=== PATIENT | male | born 1970 | race Caucasian/White ===

== ENCOUNTER 2016-09-15 13:31 | Observation (INO) ==
[2016-09-15 14:42] LABS: Basophils % 0.2 % (0.0-0.8); Eosinophils % 0.1 % (0.00-10.9); Hemoglobin 13.6 GM/DL (14.0-18.0); Immature Granulocytes % 0.5 %; Lymphocytes # 1.3 10*3/uL (1.4-4.0); Lymphocytes % 6.5 % (21.2-54.2); Mean Corpuscular HGB Conc 32.4 GM/DL (32-36); Mean Corpuscular Hemoglobin 26 PG (27-34); Mean Platelet Volume 10.8 FL (9.6-12.0); Monocytes % 4.9 % (1.7-12.7); Neutrophils # 17.1 10*3/uL (1.4-7.4); Neutrophils % 87.8 % (38.7-73.9); Platelet Count 247 10*3/uL (130-400); Red Blood Count 5.25 10*6/uL (3.8-5.5); Red Cell Distribution Width 13.8 % (9.3-17.3); White Blood Count 19.4 10*3/uL (4.5-13.71)
[2016-09-15 14:46] LABS: Apearance,Urine CLEAR (Clear); Bilirubin,Urine Negative (Negative); Blood, Urine Negative (Negative); Glucose,Urine (UA) 50 mg/dL (Negative); Ketones,Urine 20 mg/dL (Negative); Mucus,Urine Occasional /LPF (Occasional); Nitrite,Urine Negative (Negative); Protein,Urine 30 MG/DL; Squamous Epithelial Cell,Urine Occasional /HPF (0-10); Urine Color Yellow (Yellow); Urine Specific Gravity 1.028 (1.001-1.035); Urine Urobilinogen < 2.0 EU/DL (0.2-1.0); WBC,Urine 1 /HPF (0-6)
--- NOTE | 2016-09-15 15:03 | XRay Report ---
XR abdomen 2V Indication: Right-sided abdominal pain. Abdomen 3 views: No small bowel dilatation. Increased stool and gas projects over the colon, without dilatation. No evidence of free air. No abnormal calcifications or masses. Impression: Mild constipation without obstruction. PROCEDURE INTERPRETED AT [facility] DEPARTMENT OF RADIOLOGY Final Report Signed by: Michael Woody M.D.
[2016-09-15 15:08] LABS: Calcium 9.7 MG/DL (8.5-10.1); Magnesium 2.3 MG/DL (1.8-2.4); Potassium 4.3 MMOL/L (3.5-5.1)
--- NOTE | 2016-09-15 15:31 | CT Report ---
CT abdomen pelvis w con Indication: Right lower quadrant pain. Leukocytosis. CT ABDOMEN AND PELVIS WITH CONTRAST DLP: 1367 mGy*cm Comparison: None Technique: Axial CT images of the abdomen and pelvis were obtained with IV contrast; Omnipaque 350, 100 cc. Oral contrast was not administered. Abdomen: Liver is diffusely hypodense. No focal lesion shown. Gallbladder, spleen, pancreas, adrenal glands, left kidney, inferior mediastinal contents and vascular structures are grossly unremarkable. There is a 20 mm hypodensity arising the right kidney, likely a cyst. Minimal atelectasis involves the lung bases which are otherwise clear. No destructive bone lesions. No bowel obstruction. Pelvis: Minimal amount of inflammation involves the tip of the appendix which is 11 mm diameter. Urinary bladder and rectosigmoid colon are unremarkable. Prostate is normal in size. No free fluid, free air or lymphadenopathy. Impression: 1. Early acute appendicitis. 2. Right renal cyst. PROCEDURE INTERPRETED AT [facility] DEPARTMENT OF RADIOLOGY Final Report Signed by: Michael Woody M.D.
[2016-09-15] MEDS ORDERED: MORPHINE 2 MG/1 ML SYRINGE IV STA (15:36)
[2016-09-15] MEDS ORDERED: ONDANSETRON 4 MG/2 ML VIAL IV STA (15:36)
[2016-09-15] MEDS ORDERED: ONDANSETRON 4 MG/2 ML VIAL ONE ×2 (15:38→18:42)
[2016-09-15] MEDS ORDERED: MORPHINE 2 MG/1 ML SYRINGE ONE (15:38)
--- NOTE | 2016-09-15 15:47 | Emergency Department Note ---
Sina Frias Brooke, am scribing for, and in the presence of, Dickson Pineda M.D. 14:53. Miriam Frias Howard T, M.D., personally performed the services described in this documentation, ascribed by Alley Andino in my presence, and it is both accurate and complete [id number] . Arrival - Arrival Chief Complaint: Abdominal / Flank Pain Stated Complaint: right side abd pain ED Nursing Triage Note: Onset of RLQ ABD pain this morning. Last BM last night was normal. +Nausea last night. Mode of Arrival: Ambulatory Limitations: No Limitations Source: Patient, RN Notes Reviewed Time Seen by Provider: 09/15/16 14:16 - History of Present Illness HPI Narrative: Patient is a 45 year old male who presents to the ED with c/o RLQ abdominal pain. He says the pain started around 0500 this morning. After going to work he says the pain worsened. Patient says he has never experienced this pain in the past. He has never had any abdominal surgeries. Patient says he did vomit once around 2300, last night, but has no other symptoms. He has not had any food or drink today. Patient has PMHx of HTN, dyslipidemia, and NIDDM. Onset (ago): hour(s) (8) Allergies/Adverse Reactions: Allergies Allergy/AdvReac Type Severity Reaction Status Date / Time No Known Allergies Allergy Unverified 09/15/16 13:54 Review of System - Review of System 12 point system: reviewed and no additional remarkable complaints except as stated - Review of System Constitutional: Absent: fever Respiratory: Absent: respiratory distress Gastrointestinal: Present: abdominal pain (RLQ), vomiting (last night around 2300) Skin: Absent: rash Medical,Surgical,& Family Hx - Medical History Cardio: History of: Hypertension Endocrine: History of: Diabetes Mellitus (NIDDM), Dyslipidemia - Social History Smoking Status: Unknown if ever smoked Frequency of Alcohol Use: Unknown Type of Drug Use: Unknown Exam Vital Signs: Vital Signs Temperature 98.2 F 09/15/16 13:51 Pulse Rate 106 H 09/15/16 15:15 Respiratory Rate 16 09/15/16 13:51 Blood Pressure 162/101 09/15/16 15:15 O2 Sat by Pulse Oximetry 98 09/15/16 15:15 - General General appearance: alert, in no apparent distress - Head Head exam: Present: atraumatic, normocephalic - Eye Eye exam: Present: normal appearance, PERRL, EOMI - ENT ENT exam: Present: normal exam - Neck Neck exam: Present: normal inspection - Chest Chest inspection: Present: normal inspection, symmetric chest wall rise - Respiratory Respiratory exam: Present: normal lung sounds bilaterally - Cardiovascular Cardiovascular exam: Present: regular rate, normal rhythm, normal heart sounds - Abdominal Exam Abdominal exam: Present: soft, tenderness (RLQ). Absent: distention - Extremities Exam Extremities exam: Present: normal inspection - Back Exam Back exam: Present: normal inspection - Neurological Exam Neurological exam: Present: alert, oriented X3 - Psychiatric Psychiatric exam: Present: normal affect, normal mood - Skin Skin exam: Present: warm, dry, intact, normal color Course Course Narrative: Medical decision making: History and exam is consistent with appendicitis, contacted Dr. Vaz general surgeon on-call for further evaluation and treatment. Results - Labs CBC & BMP: 09/15/16 14:24 09/15/16 14:24 Lab Results: I have reviewed the patients labs Labs: Laboratory Tests 09/15/16 09/15/16 14:24 14:27 WBC 19.4 H Hgb 13.6 L MCV 80.0 L MCH 26 L Neut % (Auto) 87.8 H Lymph % (Auto) 6.5 L Neut # (Auto) 17.1 H Lymph # (Auto) 1.3 L [place] # (Auto) 1.0 H Urine Urobilinogen < 2.0 H Laboratory Tests 09/15/16 14:24 Anion Gap 16.3 H BUN 22 H Glucose 159 H Laboratory Tests 09/15/16 14:24 Anion Gap 16.3 H BUN 22 H Glucose 159 H Disposition Clinical Impression: Acute appendicitis Case discussed with: patient Disposition: Disch/Xfer-[facility]pshort Term Hos Condition: Stable Time of Disposition: 15:47
[2016-09-15] MEDS ORDERED: PIPERACILLIN/TAZOBACTAM 3,375 MG in SODIUM CHLORIDE 0.9% 100 ML IV STA (16:04)
[2016-09-15] MEDS ORDERED: PIPERACILLIN/TAZOBACTAM 3,375 MG VIAL IV ONE (16:06)
[2016-09-15] MEDS ORDERED: KETOROLAC 30 MG/1 ML VIAL IV STA (16:11)
[2016-09-15] MEDS ORDERED: HYDROmorphone 2 MG/1 ML VIAL IV STA (16:11)
[2016-09-15] MEDS ORDERED: KETOROLAC 30 MG/1 ML VIAL ONE (16:14)
[2016-09-15] MEDS ORDERED: HYDROmorphone 2 MG/1 ML VIAL ONE (16:14)
--- NOTE | 2016-09-15 16:14 | General Surg History&Physical ---
Assessment and Plan (1) Acute appendicitis Status: Acute Assessment and plan: This patient has acute early appendicitis on CT scan. I discussed the options for management with him including medical management with antibiotics and laparoscopic appendectomy. I have discussed the success rate in the treatment regimen for antibiotics and the patient prefers to proceed with a laparoscopic appendectomy. I discussed the risks, benefits, and alternatives of the operation with the patient, and the expected outcomes have been reviewed. The patient elected to proceed with laparoscopic appendectomy and this will be done tonight. He will be given Zosyn and Toradol and Dilaudid in the ER in preparation for surgery. Current Visit: Yes History of Present Illness Chief complaint: abdominal pain History of present illness: Mr. Mendoza is a 45 year old male with a past medical history of hypertension, gfz-mbxyefr-aerstmutv diabetes mellitus, and hypertriglyceridemia as well as low back pain who presents to the hospital with new onset of right lower quadrant abdominal pain that started today. He had some nausea and vomiting last night and again today but he has been having normal bowel movements. No blood in his urine. He has never had any abdominal surgery. Lab work in the ER revealed white blood cell count of 19,[address] scan of abdomen and pelvis demonstrated early appendicitis and a right renal cyst. Allergies Allergy/AdvReac Type Severity Reaction Status Date / Time No Known Allergies Allergy Unverified 09/15/16 13:54 Medical,Surgical,& Family Hx - Medical History Cardio: History of: Hypertension Endocrine: History of: Diabetes Mellitus (NIDDM), Dyslipidemia - Social History Smoking Status: Unknown if ever smoked Frequency of Alcohol Use: Unknown Type of Drug Use: Unknown Exam - Constitutional Vitals: Period Temp Pulse Resp BP Sys/[place] Pulse Ox Last 24 Hr 98.2 F 86-106 16 156-165/93-101 97-98 General appearance: no acute distress, over weight - Head Head exam: Present: normal inspection - Eye Eye exam: Present: EOMI Pupils: Present: RAVEN - ENT ENT exam: Present: normal exam Mouth exam: Present: normal external inspection, normal voice - Neck Neck exam: Present: normal inspection, trachea midline - Respiratory Respiratory exam: Present: clear to auscultation bilaterally. Absent: accessory muscle use, chest wall tenderness - Cardiovascular Cardiovascular exam: Present: RRR. Absent: systolic murmur, tachycardia - GI/Abdominal GI/Abdominal exam: Present: normal bowel sounds, guarding, tenderness, rebound, soft. Absent: ascites, distended, hernia - Extremities Exam Extremities exam: Present: normal inspection, normal capillary refill - Back Exam Back exam: Present: normal inspection - Neurological Exam Neurological exam: Present: alert, oriented X3 Speech: Present: normal - Skin Skin exam: Present: normal color, warm - Constitutional Constitutional: Present: as per HPI - EENT Nose, mouth and throat: Present: as per HPI - Cardiovascular Cardiovascular: Present: as per HPI - Respiratory Respiratory: Present: as per HPI - Gastrointestinal Gastrointestinal: Present: as per HPI - Genitourinary Genitourinary: Present: as per HPI - Musculoskeletal Musculoskeletal: Present: as per HPI - Neurological Neurological: Present: as per HPI - Endocrine Endocrine: Present: as per HPI Hematologic/Lymphatic: Present: as per HPI Results - Labs CBC & BMP: 09/15/16 14:24 09/15/16 14:24 - Diagnostic Findings Procedure: CT Abdomen and Pelvis: image reviewed by me, report reviewed by me
[2016-09-15] MEDS ORDERED: BUPIVACAINE MPF 0.25% /EPI 30 ML VIAL ONE (16:53)
[2016-09-15] MEDS ORDERED: LIDOCAINE 1%/EPI INJ 20 ML VIAL ONE (16:53)
[2016-09-15] MEDS ORDERED: TISSUE ADHESIVE 1 EACH APPLICATOR TOP ONE (18:22)
--- NOTE | 2016-09-15 18:31 | Operative Note ---
Date of procedure: 09/15/16 Pre-op diagnosis: acute appendicitis Post-op diagnosis: same Procedure: Preoperative diagnosis Acute appendicitis Post operative diagnosis Same Procedures performed Laparoscopic appendectomy Findings Acute suppurative nonperforated appendicitis Complications None apparent Specimens Appendix Blood loss [address] proven appendicitis Description of procedure Patient was taken to the operating room and transferred to the operating table in the supine position. Pressure points were padded and SCDs placed to lower extremities. General endotracheal anesthesia was administered. The abdomen was prepped chlorhexidine and draped sterilely. Preoperative antibiotics were administered, and a timeout was performed. The abdomen was entered in a supraumbilical paramedian location on the right side. Local anesthetic was administered and a 12 mm skin incision was made with a 15 blade scalpel. Penetrating towel clips are used to grasp the abdominal wall skin and a Veress needle was used to enter the peritoneal cavity confirmed by double click technique. Aspiration was negative. Saline drop test confirmed intraperitoneal location. The abdomen was insufflated to 15 mmHg with an initial insufflation pressure of 5 mm Hg. The Veress needle was then removed and a 12 mm trocar was placed blindly. Laparoscope was inserted. Diagnostic laparoscopy was performed. There was evidence of acute appendicitis with some gangrene of the distal portion of the appendix and acute separation but no perforation was seen. The patient was placed in Trendelenburg left side rolled up position. Under direct visualization, and after local anesthetic was administered, an additional 5 mm trochars placed in the suprapubic area and the left lower quadrant. The appendix was grasped and the mesentery of the appendix was opened to create a window in the appendiceal mesentery. A DAVID stapler used to transect the base the appendix and a separate load of the DAVID stapler using a vascular load was used to transect the appendix mesentery. There is no bleeding from the staple lines. There was no purulence to suction out of the pelvis or the right lower quadrant of paracolic gutter. The liver appeared normal as did the gallbladder. The appendix was placed in a retrieval bag and removed through the 12 mm trocar site. The CO2 was released from the abdomen and trochars were removed. The skin incisions were closed with 4-0 Monocryl and sterile skin glue. The patient was awakened from anesthesia and transferred to recovery. Postoperative plan Admit for observation overnight Discharge home in the morning Anesthesia: GETA, local Surgeon / Physician: Brett Vaz Estimated blood loss: minimal Specimens: other (appendix) Condition: stable Disposition: PACU Results - Labs CBC & BMP: 09/15/16 14:24 09/15/16 14:24 Discharge Plan - Discharge Data Disposition: Disch To Home/Self Care Condition at Discharge: Stable Discharge Diet: advance to your usual diet Activity: no lifting Hygiene: may shower Weight Bearing at Discharge: full weight bearing Driving: not until seen by doctor Contact your physician if you experience:: fever over 101, Difficulty voiding, Redness or swelling, Nausea/Vomiting, Shortness of breath, Bleeding, pain uncontrolled by pain medications Wound / Dressing Care Instructions: It is okay to shower. Do not scrub incisions aggressively. Do not submerge incisions under water. - Discharge Medications Continue Methocarbamol 500 mg PO QID Simvastatin 40 mg PO DAILY Ibuprofen Tab [Motrin Tab] 800 mg PO TID PRN PRN Reason: Pain Dapagliflozin Propanediol [Farxiga] 5 mg PO QAM Atenolol 50 mg PO DAILY Lisinopril/Hydrochlorothiazide [Lisinopril-Hctz 20-25 mg Tab] 1 tablet PO BID Hydrocodone/Acetaminophen [Hydrocodon-Acetaminoph 7.5-325] 1 tablet PO Q4H PRN #45 tablet PRN Reason: Pain - Follow Up or Referral Follow Up: Brett Vaz MD [Physician] - 2 Weeks - Forms/Instructions
[2016-09-15] MEDS ORDERED: SUFentanil 50 MCG/ML AMP ONE (18:41)
[2016-09-15] MEDS ORDERED: PROPOFOL 200 MG/20 ML VIAL IV ONE (18:42)
[2016-09-15] MEDS ORDERED: GLYCOPYRROLATE 0.4 MG/2 ML VIAL ONE ×2 (18:43)
[2016-09-15] MEDS ORDERED: NEOSTIGMINE 10 MG/10 ML VIAL ONE (18:43)
[2016-09-15] MEDS ORDERED: LACTATED RINGERS 1,000 ML IV ONE (18:43)
[2016-09-15] MEDS ORDERED: ROCURONIUM 100 MG/10 ML VIAL IV ONE (18:43)
[2016-09-15] MEDS ORDERED: ACETAMINOPHEN 1,000 MG/100 ML VIAL IV ONE (18:43)
[2016-09-15] MEDS ORDERED: SEVOFLURANE 1 UNIT/15 MINUTE INH ONE (18:44)
--- NOTE | 2016-09-15 18:50 | Anesthesia ---
Anesthesia Post OP - Post Ansesthetic Evaluation Patient seen in post op: Yes Resp: within normal limits CV: within normal limits Mental: within normal limits Temp: within normal limits Yavn-[id number]-Xbiyfapil: within normal limits Nausea and Vomiting: within normal limits Pain: within normal limits
[2016-09-15] MEDS ORDERED: HYDROmorphone 2 MG/1 ML VIAL IV PRN (19:59)
[2016-09-15] MEDS ORDERED: PROMETHAZINE 25 MG/1 ML VIAL IM PRN (19:59)
[2016-09-15] MEDS ORDERED: ONDANSETRON 4 MG/2 ML VIAL IV PRN (19:59)
[2016-09-15] MEDS ORDERED: GLUCAGON 1 MG VIAL IM PRN (19:59)
[2016-09-15] MEDS ORDERED: DEXTROSE 50% 25 GM/50 ML VIAL IV PRN (19:59)
[2016-09-15] MEDS: KETOROLAC 15 MG/1 ML VIAL IV SCH (20:31)
[2016-09-15] MEDS: METHOCARBAMOL 500 MG TABLET PO SCH ×2 (20:31→20:33)
[2016-09-15] MEDS: INSULIN REGULAR 100 UNIT/ML SUBCUT SCH (20:31)
[2016-09-15] MEDS: LACTATED RINGERS 1,000 ML IV SCH (21:17)
[2016-09-16] MEDS: KETOROLAC 15 MG/1 ML VIAL IV SCH ×2 (02:04→09:19)
[2016-09-16] MEDS: LACTATED RINGERS 1,000 ML IV SCH (05:23)
[2016-09-16] MEDS: INSULIN REGULAR 100 UNIT/ML SUBCUT SCH (08:36)
[2016-09-16] MEDS ORDERED: SIMVASTATIN 40 MG TABLET PO SCH (09:00)
[2016-09-16] MEDS ORDERED: ATENOLOL 50 MG TABLET PO SCH (09:00)
[2016-09-16] MEDS: METHOCARBAMOL 500 MG TABLET PO SCH (09:19)
[2016-09-16 09:33] VITALS: BP 127/73
--- NOTE | 2016-09-16 09:41 | Event Note ---
General Surgery Progress Note Chief complaint This patient is a 45-year-old man who was treated for acute appendicitis with laparoscopic appendectomy on 09/15/2016 Interval history Patient feels well today. He hasn't had anything to eat since surgery but he feels hungry. Pain is well-controlled. Afebrile with normal vital signs Physical exam Vitals are normal Abdominal exam is benign with normal bowel sounds Assessment and plan Discharge home today Follow-up in 2 weeks
[2016-09-16] MEDS ORDERED: ENOXAPARIN 40 MG/0.4 ML SYRINGE SUBCUT SCH (12:27)
--- NOTE | 2016-09-19 13:16 | Pathology Report from [facility] ---
ACCESSION # : [id number] PATIENT NAME : Cesar Leiva ORDERING DR : Brett Vaz MD CLINICAL HX: Acute appendicitis POST-OP DX: Same SPECIMEN INFO: Appendix GROSS DESCRIPTION: The specimen is received in formalin labeled with the patient 's name and consists of an appendix measuring 7.5 cm in length and up to 1.0 cm in diameter. The serosa is smooth and maguire-calix. The lumen at the distal end of the appendix is markedly dilated with a 0.7 x 0.5 cm fecalith seen. No perforations identified. Professor Of Biochemistry sections submitted in one cassette. DIAGNOSIS FOR CESAR LEIVA: APPENDIX, APPENDECTOMY: Acute appendicitis. SERVICE DATE: 09/16/2016 REPORT DATE: 09/19/2016 PATHOLOGIST: Luiza Yousif
== END 2016-09-16 12:14 | disposition home or self-care (01) ==
LOC: N.EDINP 13:31 → N.ED 13:31 → N.3E 16:55
PROVIDERS: ADMIT Surgery; ATTEND Surgery